=== PATIENT | male | born 1965 | race African-American/Black ===

== ENCOUNTER 2017-03-17 14:33 | Emergency (ER) | payer SELFPAY ==
--- NOTE | 2017-03-17 15:14 | PDOC ---
Rapid Medical Evaluation Time Seen by Provider: 03/17/17 15:12 Medical Evaluation: Allergies Allergy/AdvReac Type Severity Reaction Status Date / Time No Known Allergies Allergy Verified 02/26/17 14:39 03/17/17 15:13 I have performed a brief in-person evaluation of this patient. The patient presents with a chief complaint of: Suture removal to L knee Pertinent physical exam findings:Well healing wound to L knee w/ sutures intact I have ordered the following:nothing The patient will proceed to the ED for further evaluation.
[2017-03-17 15:21] VITALS: BP 140/86; PULSE 73; TEMP 98; BMI 29.7
--- NOTE | 2017-03-17 16:03 | PDOC ---
Suture Removal/Wound Check HPI - History of Present Illness Chief Complaint: Suture/Staple Removal(Here) Stated Complaint: REVISIT Time Seen by Provider: 03/17/17 15:12 History Source: Yes: Patient Exam Limitations: Yes: No Limitations Treated at: [facility] ED - Previous ED Treatment Type of procedure performed on last visit: Yes: Laceration Repair Tetanus Immunization: Yes: Up to Date Past History - Travel Traveled outside of the country in the last 30 days: No Close contact w/someone who was outside of country & ill: No - Past Medical History Allergies/Adverse Reactions: Allergies Allergy/AdvReac Type Severity Reaction Status Date / Time No Known Allergies Allergy Verified 03/17/17 15:16 Home Medications: Ambulatory Orders NK [No Known Home Medication] 03/17/17 COPD: No Kidney Stones: Yes - Immunization History Immunization Up to Date: Yes - Suicide/Smoking/Psychosocial Hx Smoking History: Former smoker Have you smoked in the past 12 months: No Information on smoking cessation initiated: No Hx Alcohol Use: No Drug/Substance Use Hx: No Substance Use Type: None Suture Removal/Wound Check PE - Physical Exam Laceration/Wound Check Symptoms: reports: None Current Severity Level: None *Review of Systems - Review of Systems Able to Perform ROS?: Yes Constitutional: Yes: See HPI. No: Symptoms Reported HEENTM: No: Symptoms Reported Respiratory: No: Symptoms reported Musculoskeletal: Yes: See HPI, Other (6 intact vertical mattress sutures with well approximated wound to left knee. Removed without incident). No: Symptoms Reported, Joint Pain, Joint Swelling, Muscle Pain Integumentary: Yes: Symptoms Reported, See HPI. No: Bruising All Other Systems: Reviewed and Negative *DC/Admit/Observation/Transfer Diagnosis at time of Disposition: Encounter for removal of sutures - Discharge Dispostion Disposition: HOME Condition at time of disposition: Stable Admit: No - Referrals - Patient Instructions Printed Discharge Instructions: DI for Suture Removal Additional Instructions: Rest, allow completion of healing May continue using bacitracin ointment until scabs are completely resolved Keep wound covered and out of the sun for at least one year as scar tissue will product picker and absorbable more sunlight causing a darker discoloration May use vitamin E, aloe, or other oils recommended for skin and scar healing - Post Discharge Activity Forms/Work/School Notes: Back to Work
== END 2017-03-17 16:19 | disposition home or self-care (01) ==
LOC: JERFT 14:33
DX: Z48.02 Encounter for removal of sutures (principal)
CPT/HCPCS: 99281-25